=== PATIENT | male | born 1945 | race Two or more races ===

== ENCOUNTER 2018-12-24 10:26 | Emergency (ER) | payer OTHER ==
[~2018-12-24] VITALS: Ht 177.8 cm; Wt 63.5 kg
[2018-12-24] MEDS ORDERED: SODIUM CHLORIDE 0.9% 1,000 ML IV ONE ×2 (11:06)
[2018-12-24 11:45] LABS: Basophils # (auto) 0 uL; Eosinophils # (auto) 0 uL; Eosinophils % (auto) 0.3 % (0.0-7.0); Mean Corpuscular Hemoglobin 26.8 pg (28.0-32.0); Mean Corpuscular Volume 81.1 fL (80.0-100.0); Monocytes # (auto) 1.1 uL; Neutrophils # (auto) 7.9 uL; Nucleated Red Blood Cells % 0.1 %; White Blood Cell 9.4 10^3/uL (4.4-10.8)
[2018-12-24 11:47] LABS: Basophils % (auto) 0.5 % (0.0-2.0); Hemoglobin 11.9 g/dL (13.5-17.5); Lymphocytes # (auto) 0.4 uL; Lymphocytes % (auto) 3.8 % (10.0-50.0); Mean Corpuscular Hgb Conc. 33.1 g/dL (32.0-36.0); Monocytes % (auto) 11.5 % (0.0-12.0); Neutrophils % (auto) 83.9 % (37.0-80.0); Platelet Count (auto) 279 10^3/uL (140-450); Red Blood Cells 4.44 10^6/uL (4.5-5.90); Red Cell Distribution Width 18.6 % (11.8-14.3)
[2018-12-24 11:59] LABS: INR 1.07 (0.9-1.15); Partial Thromboplastin Time 22.2 sec (23.78-33.04); Prothrombin Time 11.4 sec (9.27-12.13)
[2018-12-24 12:13] LABS: Alanine Aminotransferase 15 U/L (16-61); Albumin 2.3 g/dL (3.4-5.0); Anion Gap 11 (5-15); BUN/Creatinine Ratio 38.6; Blood Urea Nitrogen 34 mg/dL (7-18); Calcium 8.7 mg/dL (8.5-10.1); Carbon Dioxide 25 mmol/L (21-32); Chloride 104 mmol/L (98-107); GFR African American 109 mL/min; GFR Non-African American 90 mL/min; Glucose 91 mg/dL (74-106); Potassium 3.9 mmol/L (3.5-5.1); Sodium 140 mmol/L (136-145)
[2018-12-24] MEDS ORDERED: PIPERACILLIN-TAZOB 3.375GM 100 ML IV ONE (12:15)
[2018-12-24] MEDS ORDERED: VANCOMYCIN 1GM/250ML 250 ML IV ONE (12:15)
[2018-12-24 12:18] LABS: Alkaline Phosphatase 71 U/L (45-117); Aspartate Aminotransferase 55 U/L (15-37); Bilirubin, Total 0.8 mg/dL (0.2-1.0); Total Protein 5.4 g/dL (6.4-8.2)
[2018-12-24 16:09] VITALS: BP 113/73
== END 2018-12-24 16:10 | disposition home or self-care (01) ==
LOC: EDBD 10:26 → ER 10:32
DX: C49.A2 Gastrointestinal stromal tumor of stomach (principal); C78.89 Secondary malignant neoplasm of other digestive organs; J18.9 Pneumonia, unspecified organism; Z88.6 Allergy status to analgesic agent
CPT/HCPCS: 36415; 71045; 74176; 80053; 83605; 83880; 84484; 85025; 85610; 85730; 87040; 93005; 96365; 96366; 99284; J2543; J7030

== ENCOUNTER 2018-12-27 19:59 | Emergency (ER) | payer OTHER ==
[~2018-12-27] VITALS: Ht 177.8 cm; Wt 81.6 kg
[2018-12-27 20:50] LABS: Basophils # (auto) 0 uL; Basophils % (auto) 0.2 % (0.0-2.0); Eosinophils # (auto) 0 uL; Hematocrit 35.9 % (41.0-53.0); Hemoglobin 11.8 g/dL (13.5-17.5); Lymphocytes # (auto) 0.2 uL; Lymphocytes % (auto) 1.7 % (10.0-50.0); Mean Corpuscular Hgb Conc. 32.8 g/dL (32.0-36.0); Mean Corpuscular Volume 82.5 fL (80.0-100.0); Monocytes # (auto) 0.7 uL; Monocytes % (auto) 7.6 % (0.0-12.0); Neutrophils # (auto) 8.4 uL; Neutrophils % (auto) 90.5 % (37.0-80.0); Nucleated Red Blood Cells % 0.1 %; Platelet Count (auto) 244 10^3/uL (140-450); Red Blood Cells 4.35 10^6/uL (4.5-5.90); Red Cell Distribution Width 18.5 % (11.8-14.3); White Blood Cell 9.2 10^3/uL (4.4-10.8)
[2018-12-27 21:07] LABS: Alanine Aminotransferase 16 U/L (16-61); Albumin 2.2 g/dL (3.4-5.0); Anion Gap 11 (5-15); Blood Urea Nitrogen 42 mg/dL (7-18); Calcium 8.3 mg/dL (8.5-10.1); Carbon Dioxide 25 mmol/L (21-32); Chloride 106 mmol/L (98-107); Glucose 103 mg/dL (74-106); Potassium 4.5 mmol/L (3.5-5.1); Sodium 142 mmol/L (136-145)
[2018-12-27 21:15] LABS: INR 1.32 (0.9-1.15); Partial Thromboplastin Time 23.6 sec (23.78-33.04); Prothrombin Time 13.9 sec (9.27-12.13)
[2018-12-27 21:19] LABS: Alkaline Phosphatase 61 U/L (45-117); Aspartate Aminotransferase 50 U/L (15-37); BUN/Creatinine Ratio 44.7; Bilirubin, Total 0.6 mg/dL (0.2-1.0); GFR African American 101 mL/min; GFR Non-African American 84 mL/min; Total Protein 4.7 g/dL (6.4-8.2)
[2018-12-27] MEDS ORDERED: ALBUTEROL SULF 2.5 MG/0.5ML(0.5%) NEB SOLN NEB ONE (22:00)
[2018-12-27] MEDS ORDERED: IPRATROPIUM BROM 0.5 MG/2.5ML INH SOL NEB ONE (22:00)
[2018-12-27] MEDS ORDERED: ONDANSETRON HCL 4 MG/2 ML VIAL IV ONE (22:15)
[2018-12-27] MEDS ORDERED: methylPREDNISolone SOD SUCC 125 MG/2 ML VL IV ONE (22:30)
[2018-12-28] MEDS: IPRATROPIUM BROM 0.5 MG/2.5ML INH SOL NEB SCH ×6 (00:54→09:51)
[2018-12-28] MEDS: ALBUTEROL SULF 2.5 MG/0.5ML(0.5%) NEB SOLN NEB SCH ×6 (00:54→09:51)
--- NOTE | 2018-12-28 02:18 | NUR ---
Respiratory note: PT PLACED ON HIGH FLOW AT 0218. PT HIGH FLOW PLUGGED INTO RED OUTLET. PT HIGH FLOW SETTINGS ARE 50LPM 60% FIO2. PT TOLERATING HIGH FLOW WELL AT THIS TIME WILL CONTINUE TO MONITOR PT ORDERED.
--- NOTE | 2018-12-28 02:35 | NUR ---
Respiratory note: PT TAKEN OFF HIGH FLOW PER PT REQUEST. PT PLACED ON 15LPM NRB, PT REMAINS STABLE AT THIS TIME WILL CONTINUE MONITOR PT ORDERED.
[2018-12-28 02:59] VITALS: BP 103/78
[2018-12-28] MEDS ORDERED: methylPREDNISolone SOD SUCC 125 MG/2 ML VL IV ONE ×2 (04:00→07:45)
[2018-12-28] MEDS ORDERED: LEVOFLOXACIN 500MG 100 ML IV ONE (07:45)
[2018-12-28 16:10] VITALS: BP 104/73
== END 2018-12-28 16:35 | disposition home or self-care (01) ==
LOC: EDBD 19:59 → ER 20:06
DX: R09.02 Hypoxemia (principal); R06.89 Other abnormalities of breathing; J90 Pleural effusion, not elsewhere classified; C78.7 Secondary malignant neoplasm of liver and intrahepatic bile duct; R16.0 Hepatomegaly, not elsewhere classified
CPT/HCPCS: 36415; 71045; 80053; 83880; 84484; 85025; 85610; 85730; 93005; 94640; 96365; 96375; 96376; 99284; J1956; J2405; J2930; J7611; J7644